=== PATIENT | female | born 1995 | race African-American/Black ===

== ENCOUNTER 2024-04-17 16:57 | Outpatient (CLI) | payer BC, SELFPAY ==
--- NOTE | ~2024-04-17 | XR_ITS ---
CHEST RADIOGRAPH, PA AND LATERAL CLINICAL HISTORY: Abdominoplasty . COMPARISON: None available TECHNIQUE: PA and lateral views of the chest. FINDINGS The cardiomediastinal silhouette is unremarkable. The lungs are clear. Visualized osseous structures and soft tissues are unremarkable. IMPRESSION: No focal infiltrate or effusion. Reviewed, dictated and finalized at location A. [facility]
== END 2024-04-17 16:58 | disposition home or self-care (01) ==
DX: Z01.812 Encounter for preprocedural laboratory examination (principal)
CPT/HCPCS: 71046

== ENCOUNTER 2024-06-26 01:33 | Emergency (ER) | payer BC, SELFPAY ==
[2024-06-26 01:43] VITALS: BP 137/86; PULSE 84; RESP 16; TEMP 36.6; O2SAT 100
[2024-06-26 04:17] VITALS: BP 129/91; PULSE 69; RESP 16; TEMP 36.6; O2SAT 100
--- NOTE | 2024-06-26 06:25 | PC.NURSE ---
pt asked library media technician Shaye to get the paper to sign so she can leave. This RN spoke with pt about labs that had been drawn, and waiting on the edp to see her. Pt still requesting to have rn remove iv and leave. This rn removed IV and pt is changing into her street clothes and leaving.
== END 2024-06-26 07:26 | disposition left against medical advice (07) ==
LOC: ANHED 07:18
DX: R50.9 Fever, unspecified (principal)
CPT/HCPCS: 99199